=== PATIENT | female | born 1975 | race Caucasian/White ===

== ENCOUNTER → 2017-05-10 | Outpatient (CLI) | payer BC ==
[~2017-05-10] MED LIST: PRENTAB26
== END | disposition home or self-care (01) ==
LOC: C.PAPS 12:03
PROVIDERS: ATTEND Obstetrics & Gynecology
DX: Z01.419 Encounter for gynecological examination (general) (routine) without abnormal findings (principal)

== ENCOUNTER → 2017-06-13 | Outpatient (CLI) | payer BC ==
--- NOTE | 2017-06-13 16:03 | MAMMOGRAPHY REPORT ---
ULTRASOUND OF BOTH BREASTS: 06/13/2017 CLINICAL HISTORY: Callback from screening mammography for a newly visualized 1.6 cm mass in the left upper outer quadrant. Family history of breast cancer. COMPARISON: Comparison is made to exams dated: 10/06/2015 ultrasound, 05/31/2017 mammogram, 10/06/2015 m ammogram, 02/26/2015 ultrasound, 02/26/2015 mammogram, and 07/14/2014 ultrasound - [facility]. FINDINGS: Targeted ultrasound was performed in the left upper outer quadrant to assess for the round circumscribed 1.6 cm mammographic mass. In the 2:00 axis, 3 cm from the nipple, there is an oval pa rallel circumscribed anechoic benign simple cyst with posterior acoustic enhancement, measuring 1.3 x 0.7 x 1.5 cm. This is benign and correlates with the mammographic mass. However, incidentally iden tified on scanning the left upper outer quadrant is a multilobulated and microlobulated isoechoic to slightly hypoechoic solid appearing mass, possibly intraductal, measuring 4.7 x 6.8 x 11.9 mm. Altho ugh this could represent focal fibrocystic change, a papillary lesion or DCIS could appear similar an d definitive characterization with an ultrasound-guided core biopsy is recommended. IMPRESSION: ACR BI-RADS CATEGORY 4: SUSPICIOUS - FOLLOW-UP RECOMMENDED 1. The newly visualized 1.6 cm partially circumscribed mass in the upper outer middle one third of t he left breast seen mammographically correlates with a benign anechoic simple cyst on ultrasound, car ntified in the 2:00 left breast, 3 cm from the nipple. 2. However, incidentally identified in the left 2:00 breast 5 cm from the nipple on ultrasound scann ing is a microlobulated and multilobulated hypoechoic solid appearing mass measuring 11.9 mm. This i s indeterminate and further characterization with ultrasound guided core biopsy is recommended. These results and recommendations were discussed with the patient at the time of the exam. She tenta tively scheduled the left breast biopsy prior to leaving our department. Penny Gillis M.D. ay/:06/13/2017 14:45:40 [place] Technician: Luci CORTES(R)(Aniceto), [facility] letter sent: Abnormal 4/5 BI-RADS Code: ACR BI-RADS Category 4: Suspicious
== END | disposition home or self-care (01) ==
LOC: C.MAMM 14:15
PROVIDERS: ATTEND Obstetrics & Gynecology
DX: N63.21 Unspecified lump in the left breast, upper outer quadrant (principal); Z80.3 Family history of malignant neoplasm of breast

== ENCOUNTER → 2017-06-19 | Outpatient (CLI) | payer BC ==
--- NOTE | 2017-06-19 13:35 | Discharge Instructions ---
Discharge Instructions Procedure Procedure Date: Jun 19, 2017. Reason for visit: Left Breast Mass. Discharge Discharge Date: Jun 19, 2017. Discharge Diagnosis: post left breast ultrasound guided core biopsy Instructions Activity Recommendations: Additional Limitations (see below) Return to School/Work: no limitations Recommended Home Diet: No Limitations Provider Instructions: ACTIVITY RECOMMENDATIONS: * No lifting, pushing, pulling or exercising the affected side for three days. RETURN TO SCHOOL/WORK: * You may return to work/school after the procedure, but do not perform any strenuous activities for 24 to 48 hours. MEDICATIONS: * Tylenol (two 325 mg) every four to six hours if needed for mild pain (if not allergic to Tylenol). DIET: * Resume previous diet. SPECIAL CARE INSTRUCTIONS: * Keep biopsy site dry for 24 hours. May shower after 24 hours, but do not soak (bathe) incision. * May remove Tegaderm (plastic patch) tomorrow AFTER showering. * Leave the steri-strips on for one week. Allow the steri-strips to fall off by themselves. If not off after one week, you may remove them. You may place a Bandaid crosswise over the strips, if desired. * Apply ice 10 minutes on and 10 minutes off as needed. * Wear a bra at bedtime to sleep more comfortably for 2-3 days. * Your referring physician should have the results after approximately 5 to 7 business days. * Call for unusual bleeding, fever, drainage, etc or if you have any questions call [phone] during normal business hours or after hours call Dr Gillis, . FOLLOW UP VISIT: Follow-up with Referring Physician as scheduled. Allergies Coded Allergies: No Known Allergies (Verified Allergy, Unknown, 10/08/04) Wali Bai Recommendations: Call your doctor if: * Temperature above 101 degrees * Pain not relieved by pain medicine ordered * There is increased drainage or redness from any incision * You have any unanswered questions or concerns. Your Doctors Instructions noted above were prepared by provider Penny Gillis. Patient Signature Section: Patient Instructions Signature Page Chanel Myles Patient (or Guardian) Signature/Date: I have read and understand the instructions given to me by my caregivers. Caregiver/RN/Doctor Signature/Date: The above-named patient and/or guardian has received patient instructions on this date. + Original Patient Signature Page (only) stays with chart. Please make copy for patient.
--- NOTE | 2017-06-20 14:08 | MAMMOGRAPHY REPORT ---
ULTRASOUND GUIDED BIOPSY LEFT BREAST: 06/19/2017 CLINICAL HISTORY: Incidentally identified 11 mm microlobulated hypoechoic mass with fingerlike projec tions in the 2:00 left breast, while scanning for a round circumscribed mammographic mass in the left upper outer quadrant. The circumscribed mass represents a benign cyst but the microlobulated hypoec hoic mass is indeterminate and patient presents for ultrasound-guided core needle biopsy. COMPARISON: Comparison is made to exams dated: 06/13/2017 ultrasound, 05/31/2017 mammogram, 10/06/2015 ultrasound, 10/06/2015 mammogram, 02/26/2015 ultrasound, and 02/26/2015 mammogram - [facility]. PATIENT CONSENT: The procedure, risks and benefits were discussed with the patient and informed conse nt was obtained both verbally and in writing. Specific risks to this procedure include: bleeding, in fection, puncture of adjacent structure, nontarget biopsy, sampling error, pain, metal allergy and me dication reaction. PROCEDURE DESCRIPTION: A time out was performed and the left breast was agreed as the site of biopsy. The skin was prepped and draped in the usual sterile fashion. The hypoechoic microlobulated 11mm mas s in the 2:00 left breast was chosen as the target for biopsy. Subcutaneous and intraparenchymal 1% b uffered lidocaine, with and without epinephrine, was administered as local anesthesia. A skin incisio n was made. Through the incision, 5 samples were taken with a 12 gauge Celero biopsy device. A ribbo n shaped metallic marker was placed at the biopsy site. Hemostasis was achieved after manual compress ion. The patient tolerated the procedure well and there was no immediate complication. The samples w ere sent to the pathology department in an appropriately labeled container. Post procedure left CC and ML tomosynthesis images were obtained. There is a new ribbon-shaped biops y marker clip in the 2:00 middle one third of the left breast, at the site of the hypoechoic multilob ulated mass identified on ultrasound. No significant post biopsy hematoma. IMPRESSION: ULTRASOUND GUIDED BIOPSY Status post ultrasound guided core biopsy of an indeterminate multilobulated hypoechoic 11 mm mass in the 2:00 left breast, with biopsy marker placed at the site. The patient will receive notification of the biopsy results from her referring physician. Penny Gillis M.D. ay/:06/19/2017 13:52:05 Plasterer Foreman: Nayla Sherman, [facility]
--- NOTE | 2017-06-20 14:13 | MAMMOGRAPHY REPORT ---
UNILATERAL LEFT DIGITAL DIAGNOSTIC MAMMOGRAM TOMOSYNTHESIS: 06/19/2017 CLINICAL HISTORY: Status post ultrasound-guided core biopsy of a multilobulated hypoechoic mass in th e 2:00 left breast. Please refer to the report from left breast ultrasound guided core biopsy performed at the same time for full detail. IMPRESSION: POST PROCEDURE IMAGING FOR MARKER PLACEMENT Please refer to the report from left breast ultrasound guided core biopsy performed at the same time for full detail. Approximately 10% of breast cancers are not detected with mammography. A negative mammographic report should not delay biopsy if a clinically suggestive mass is present. Penny Gillis M.D. ay/:06/19/2017 13:33:23 Attending Pathologist: Nayla Sherman, [facility] BI-RADS Code: Post Procedure Imaging For Marker Placement
== END | disposition home or self-care (01) ==
LOC: C.MAMM 12:50
PROVIDERS: ATTEND Obstetrics & Gynecology
DX: R92.8 Other abnormal and inconclusive findings on diagnostic imaging of breast (principal); N63.20 Unspecified lump in the left breast, unspecified quadrant; D24.2 Benign neoplasm of left breast